=== PATIENT | male | born 1955 | race Caucasian/White ===

== ENCOUNTER 2016-09-29 14:46 | Emergency (ER) | payer BC ==
[2016-09-29] MEDS ORDERED: ONDANSETRON 4 MG VIAL ONE (16:30)
[2016-09-29] MEDS ORDERED: SODIUM CHLORIDE 0.9% 1,000 ML ONE (16:31)
[2016-09-29] MEDS ORDERED: DILAUDID 1 MG/ML AMP ONE (16:31)
== END 2016-09-29 17:51 | disposition home or self-care (01) ==
LOC: ER 14:46
DX: R11.2 Nausea with vomiting, unspecified (principal); R19.7 Diarrhea, unspecified; K52.9 Noninfective gastroenteritis and colitis, unspecified; Z79.899 Other long term (current) drug therapy
CPT/HCPCS: 36415; 74022; 80053; 81001; 83690; 85025; 87804; 96374; 96375